=== PATIENT | female | born 1990 | race African-American/Black ===

== ENCOUNTER 2018-10-28 14:21 | Emergency (ER) | payer OTHER ==
[~2018-10-28] VITALS: Ht 170.2 cm; Wt 45.4 kg
[2018-10-28 15:22] VITALS: BP 118/82
== END 2018-10-28 15:55 | disposition home or self-care (01) ==
LOC: ER 14:21
DX: G47.00 Insomnia, unspecified (principal); F41.9 Anxiety disorder, unspecified